=== PATIENT | male | born 1975 | race Caucasian/White ===

== ENCOUNTER 2017-11-23 11:09 | Emergency (ER) | payer MEDICAID, SELFPAY ==
[2017-11-23 11:10] VITALS: BP 122/79; PULSE 123; RESP 16; TEMP 37.2; O2SAT 99; BMI 38.6
--- NOTE | 2017-11-23 11:25 | ED.DCSUM_ITS ---
- ER Visit Summary Date of Service: 11/23/17 Chief Complaint: Not feeling well History of Present Illness: The patient is a 42 M presenting stating that he has not felt well for the past 3 weeks. He states he has had nausea, vomiting, diarrhea. He has had abdominal pain. This is worse when he eats. He has had fever at home along with flulike symptoms. He denies cough. He complains of sore throat only with vomiting. He went to his primary care physician today was sent into the ED for further evaluation. He denies chest pain or shortness of breath. Physical Examination: Vitals are stable. Patient is afebrile. Alert no acute distress. HEENT exam is unremarkable. Neck is supple. Lungs are clear and equal bilaterally. Heart is regular and tachycardic Abdomen is soft epigastric tenderness, no rebound or guarding Extremities are unremarkable. Skin is warm and dry. No focal neurologic deficit. Remainder of exam is unremarkable. Emergency Department Course and Treatment: Patient is given a GI cocktail. He was given zofran and IV fluids with improvement. CBC normal except for white count 11.3. Chemistries unremarkable. Liver enzymes are normal except for alk phos 126. Lipase is normal. Troponin is negative. Patient is feeling improved in the emergency department. Repeat heart rate 100. He is given prescription for Zofran. He is advised to follow-up with his primary care physician. Advised return to ED if worsening complaints. Disposition: Discharge home Impression: Vomiting and diarrhea This note was generated with [employer] dictation software. It may contain incorrect words, spelling, and punctuation that were not noted in review of the chart prior to signing ED Disposition - Plan for ED Patient: Chief Complaint: General Illness Instructions: ED Diet Vomiting Diarrhea Prescriptions: Ondansetron [Zofran Odt] 4 mg PO Q8H PRN PRN #10 tablet PRN Reason: Nausea Referrals: Kenn Pate MD [Primary Care Provider] -
--- NOTE | 2017-11-23 11:38 | NURSING ---
NO OLD EKGS
[2017-11-23] MEDS: Ondansetron 4 MG/2 ML Vial IV (11:45)
[2017-11-23] MEDS: 0.9% Normal Saline 1,000 ML 1000 ML IV (11:45)
[2017-11-23 12:07] LABS: Absolute Lymphocyte Count 0.38 X10^3/ul (0.83-4.51); Absolute Neutrophil Count 10.1 X10^3/uL (2.0-7.7); Basophil# 0.01 X10^3/uL; Basophil% 0.1 % (0-1); Differential Indicated SCAN CRITERIA MET; Eosinophil# 0.12 X10^3/uL; Eosinophils% 1.1 % (0-5); Hematocrit 48.7 % (40-54); Hemoglobin 16.8 g/dl (13.0-16.5); Lymphocyte # 0.38 X10^3/ul (4.0); Lymphocyte % 3.4 % (19-41); Mean Corp Hgb Conc 34.5 g/gl (32-36); Mean Corpuscular Hgb 29.7 pg (27.0-32.0); Mean Corpuscular Volume 86.2 fL (80-94); Mean Platelet Vol. 10.9 fl (6.2-12.0); Monocyte# 0.63 X10^3/uL; Monocyte% 5.6 % (0-10); Neutrophil % 89.5 % (47-70); POSITIVE COUNT NO; POSITIVE DIFFERENTIAL YES; POSITIVE MORPHOLOGY NO; Platelet Count 188 K/mm3 (150-450); RBC Distribution Width CV 12.7 % (11.6-14.6); RBC Distribution Width SD 39.9 fl (35.1-43.9); Red Blood Count 5.65 M/mm3 (4.6-6.2); White Blood Count 11.3 K/mm3 (4.4-11.0)
[2017-11-23 12:21] LABS: ALB/GLOB Ratio 0.8 RATIO (0.9-2.4); AST(SGOT) 32 U/L (15-37); Alanine Aminotransfer ALT/SGPT 43 U/L (16-61); Alkaline Phosphatase 126 U/L (45-117); Anion Gap 12 (5-15); BUN 14 mg/dL (7-18); BUN/Creat Ratio 12.8 RATIO (10-20); Calcium,Total 8.2 mg/dL (8.5-10.1); Chloride 110 mmol/L (98-107); Creatinine, Serum 1.09 mg/dL (0.70-1.30); EST Glomerular Filtration Rate 78 mL/min (>60); Est Glom Filt Rate - Afr Amer 95 mL/min (>60); Estimated Creatinine Clearance 93.07 ml/min; Glucose 114 mg/dL (74-106); Lipase 75 U/L (73-393); Potassium 4.5 mmol/L (3.5-5.1); Sodium Level 144 mmol/L (136-145)
[2017-11-23 14:35] VITALS: RESP 14
[2017-11-23 14:50] VITALS: BP 117/78; PULSE 105; RESP 17; O2SAT 95
[2017-11-23] MEDS: Acetaminophen 500 MG Tablet 1000 MG PO (14:50)
--- NOTE | 2017-11-23 14:52 | ED.DEP ---
ED Disposition - Plan for ED Patient: Chief Complaint: General Illness Instructions: ED Diet Vomiting Diarrhea Prescriptions: Ondansetron [Zofran Odt] 4 mg PO Q8H PRN PRN #10 tablet PRN Reason: Nausea Referrals: Kenn Pate MD [Primary Care Provider] -
[2017-11-23 15:08] VITALS: BP 117/78; PULSE 105; RESP 18; O2SAT 99
== END 2017-11-23 15:09 | disposition home or self-care (01) ==
PROVIDERS: Emergency Provider Emergency Medicine; Family Provider Family Medicine; PCP Family Medicine
DX: R11.2 Nausea with vomiting, unspecified (principal); R19.7 Diarrhea, unspecified; Z79.891 Long term (current) use of opiate analgesic; Z79.899 Other long term (current) drug therapy
CPT/HCPCS: 80053; 83690; 84484; 85025; 96361; 96374; 99283; J7030; J2405

== ENCOUNTER 2018-02-16 21:49 | Emergency (ER) | payer MEDICAID, SELFPAY ==
[2018-02-16 21:51] VITALS: BP 120/86; PULSE 79; RESP 16; TEMP 37.1; O2SAT 98; BMI 30.2
[2018-02-16] MEDS: 0.9% Normal Saline 1,000 ML 1000 ML IV (22:58)
[2018-02-16] MEDS: Loperamide 2 MG Capsule 4 MG PO (22:58)
[2018-02-16] MEDS: Dicyclomine 20 MG/2 ML Vial IM (22:58)
[2018-02-16] MEDS: Ondansetron 4 MG/2 ML Vial IV (22:58)
[2018-02-16 23:15] LABS: Absolute Lymphocyte Count 1.68 X10^3/ul (0.83-4.51); Absolute Neutrophil Count 11.2 X10^3/uL (2.0-7.7); Basophil# 0.03 X10^3/uL; Basophil% 0.2 % (0-1); Eosinophil# 0.08 X10^3/uL; Eosinophils% 0.6 % (0-5); Hematocrit 40.4 % (40-54); Hemoglobin 14.3 g/dl (13.0-16.5); Lymphocyte # 1.68 X10^3/ul (4.0); Mean Corp Hgb Conc 35.4 g/gl (32-36); Mean Corpuscular Hgb 29.4 pg (27.0-32.0); Mean Platelet Vol. 10.3 fl (6.2-12.0); Monocyte% 7.1 % (0-10); Neutrophil # 11.17 X10^3/uL (2.7-7.7); Neutrophil % 79.8 % (47-70); Platelet Count 215 K/mm3 (150-450); RBC Distribution Width CV 12.4 % (11.6-14.6); RBC Distribution Width SD 37.2 fl (35.1-43.9); Red Blood Count 4.87 M/mm3 (4.6-6.2)
[2018-02-16 23:16] LABS: POSITIVE COUNT NO; POSITIVE DIFFERENTIAL NO; POSITIVE MORPHOLOGY NO
[2018-02-16 23:33] LABS: ALB/GLOB Ratio 0.8 RATIO (0.9-2.4); AST(SGOT) 23 U/L (15-37); Alanine Aminotransfer ALT/SGPT 43 U/L (16-61); Alkaline Phosphatase 103 U/L (45-117); Anion Gap 9 (5-15); BUN 12 mg/dL (7-18); BUN/Creat Ratio 11.3 RATIO (10-20); Calcium,Total 8.4 mg/dL (8.5-10.1); Chloride 108 mmol/L (98-107); Creatinine, Serum 1.06 mg/dL (0.70-1.30); EST Glomerular Filtration Rate 81 mL/min (>60); Est Glom Filt Rate - Afr Amer 98 mL/min (>60); Globulin 3.6 g/dL (2.2-4.2); Glucose 121 mg/dL (74-106); Lipase 72 U/L (73-393); Potassium 3.5 mmol/L (3.5-5.1); Protein, Total 6.6 g/dL (6.4-8.2); Sodium Level 142 mmol/L (136-145)
--- NOTE | 2018-02-16 23:54 | ED.VISSUMM ---
- ER Visit Summary Date of Service: 02/16/18 Chief Complaint: Nausea vomiting and diarrhea History of Present Illness: The patient is a 42 M who presents with nausea vomiting diarrhea of 1 day. He states he vomited 10+ times. He has had 2 episodes of loose stools. He complains of diffuse abdominal cramping type pain. He denies fevers chest pain shortness of breath. He has chronic back pain. Physical Examination: Afebrile vitals are stable Moist mucous membranes Heart regular rate and rhythm Lungs are clear Abdomen soft nontender palpation nondistended Test Results: Laboratory studies notable for white blood cell count 14.0. Renal function and hepatic function lipase unremarkable. Emergency Department Course and Treatment: She was treated with IV fluids Zofran and Bentyl and Imodium. He is resting comfortably on reevaluation. Advised that this is likely a viral gastroenteritis and is likely self-limiting. He was instructed on specific signs and symptoms to monitor for, conditions under which to return to the emergency department. He was given a prescription for Zofran for as needed and was discharged Treatment Plan: [] Disposition: Discharge Impression: Gastroenteritis This note was generated with [employer] dictation software. It may contain incorrect words, spelling, and punctuation that were not noted in review of the chart prior to signing ED Disposition - Plan for ED Patient: Chief Complaint: Nausea/Vomiting Referrals: Kenn Pate MD [Primary Care Provider] -
--- NOTE | 2018-02-16 23:58 | ED.DCSUM_ITS ---
- ER Visit Summary Date of Service: 02/16/18 Chief Complaint: Nausea vomiting and diarrhea History of Present Illness: The patient is a 42 M who presents with nausea vomiting diarrhea of 1 day. He states he vomited 10+ times. He has had 2 episodes of loose stools. He complains of diffuse abdominal cramping type pain. He denies fevers chest pain shortness of breath. He has chronic back pain. Physical Examination: Afebrile vitals are stable Moist mucous membranes Heart regular rate and rhythm Lungs are clear Abdomen soft nontender palpation nondistended Test Results: Laboratory studies notable for white blood cell count 14.0. Renal function and hepatic function lipase unremarkable. Emergency Department Course and Treatment: She was treated with IV fluids Zofran and Bentyl and Imodium. He is resting comfortably on reevaluation. Advised that this is likely a viral gastroenteritis and is likely self- limiting. He was instructed on specific signs and symptoms to monitor for, conditions under which to return to the emergency department. He was given a prescription for Zofran for as needed and was discharged Treatment Plan: [] Disposition: Discharge Impression: Gastroenteritis This note was generated with [employer] dictation software. It may contain incorrect words, spelling, and punctuation that were not noted in review of the chart prior to signing ED Disposition - Plan for ED Patient: Chief Complaint: Nausea/Vomiting Referrals: Kenn Pate MD [Primary Care Provider] -
--- NOTE | 2018-02-16 23:58 | ED.DEP ---
ED Disposition - Plan for ED Patient: Chief Complaint: Nausea/Vomiting Instructions: ED Gastroenteritis Viral Prescriptions: Ondansetron [Zofran Odt] 4 mg PO Q8H PRN PRN #10 tab PRN Reason: Nausea Referrals: Kenn Pate MD [Primary Care Provider] -
[2018-02-17 00:17] VITALS: BP 135/80; PULSE 85; RESP 17; O2SAT 95
--- NOTE | 2018-02-17 00:17 | ED.RN ---
IV DC'ED, CATHETER INTACT, SMALL GAUZE DRESSING PLACED. DISCHARGE INSTRUCTIONS GIVEN TO AND REVIEWED WITH PATIENT, PATIENT DENIES QUESTIONS OR CONCERNS AND VOICES UNDERSTANDING OF DISCHARGE INSTRUCTIONS.
== END 2018-02-17 00:20 | disposition home or self-care (01) ==
LOC: ED 22:36
PROVIDERS: Emergency Provider Emergency Medicine; Family Provider Family Medicine; PCP Family Medicine
DX: K52.9 Noninfective gastroenteritis and colitis, unspecified (principal); M54.9 Dorsalgia, unspecified; G89.29 Other chronic pain; Z79.891 Long term (current) use of opiate analgesic; Z79.899 Other long term (current) drug therapy
CPT/HCPCS: 80053; 83690; 85025; 96372; 96374; 99283; J7030; J2405

== ENCOUNTER 2019-06-03 08:12 | Emergency (ER) | payer MEDICAID, SELFPAY ==
[2019-06-03 08:13] VITALS: BP 161/65; PULSE 65; RESP 16; TEMP 36.6; O2SAT 97; BMI 34.8
--- NOTE | 2019-06-03 08:25 | CT_ITS ---
STUDY: CT ABDOMEN AND PELVIS WITH CONTRAST REASON FOR EXAM: Male, 43 years old. Nausea and vomiting. Mid abdominal pain. History of prior umbilical hernia repair. RADIATION DOSAGE (If Supplied By Facility): CTDIvol = ( 18.57 ) mGy, DLP = ( 1397.94 ) mGycm TECHNIQUE: Transaxial images were obtained from the dome of the diaphragm to the symphysis pubis without oral contrast. 100mL IV Isovue 300 was administered. Sagittal and coronal images were reconstructed. Individualized dose optimization techniques were used for this CT. COMPARISON: Comparison is made with prior study dated January 16, 2014. FINDINGS: Increased markings at the lung bases slightly worse on the left side suggestive of atelectasis and/or possible infiltrate. Clinical correlation is recommended. The visualized portions of the heart are within normal limits. There is decreased attenuation of the liver consistent with steatosis. Normal gallbladder and extrahepatic biliary system. Normal spleen. There is diffuse atrophy of the pancreas. Normal bilateral adrenal glands. Normal right kidney. Normal left kidney. There is a small hiatal hernia. Findings suggestive of a 4.1 cm diverticulum of the second portion of the duodenum. Normal small intestine. Normal colon. The appendix is visualized and appears normal. There is scattered atherosclerotic calcification of the abdominal aorta, without a demonstrated aneurysm. Normal inferior vena cava. There is borderline retroperitoneal lymphadenopathy with enlarged nodes no greater than 10mm in the short axis diameter. Normal urinary bladder. Normal abdominal wall. Normal osseous structures. CT/Abdomen/Pelvis W IV Cont ONLY IMPRESSION: Increased markings at the lung bases worse on the left side suggestive of bibasilar atelectasis and possible superimposed left lower lobe infiltrate. There is atrophy of the pancreas. Electronically Signed: Paul Lopez, at 10:30 EDT , Service support ,
[2019-06-03] MEDS: Ondansetron 4 MG/2 ML Vial IV (08:57)
[2019-06-03] MEDS: morphine 8 MG/ML Syringe IV (08:57)
[2019-06-03] MEDS: 0.9% Normal Saline 1,000 ML 1000 ML IV (08:57)
[2019-06-03 08:59] LABS: Absolute Lymphocyte Count 1.14 X10^3/uL (0.83-4.51); Absolute Neutrophil Count 6.6 X10^3/uL (2.0-7.7); Basophil# 0.05 X10^3/uL; Basophil% 0.6 % (0-1); Eosinophils% 1.2 % (0-5); Hematocrit 43.8 % (40-54); Hemoglobin 15.1 g/dL (13.0-16.5); Lymphocyte # 1.14 X10^3/ul (4.0); Lymphocyte % 13.5 % (19-41); Mean Corp Hgb Conc 34.5 g/dL (32-36); Mean Corpuscular Hgb 29.9 pg (27.0-32.0); Mean Corpuscular Volume 86.7 fL (80-94); Mean Platelet Vol. 10.3 fl (6.2-12.0); Monocyte# 0.53 X10^3/uL; Monocyte% 6.3 % (0-10); NRBC Flagged by Analyzer 0 % (0-5); Neutrophil # 6.59 X10^3/uL (2.7-7.7); Neutrophil % 77.8 % (47-70); Platelet Count 216 K/mm3 (150-450); RBC Distribution Width CV 11.9 % (11.6-14.6); RBC Distribution Width SD 37.7 fl (35.1-43.9); Red Blood Count 5.05 M/mm3 (4.6-6.2); White Blood Count 8.5 K/mm3 (4.4-11.0)
[2019-06-03 09:16] LABS: ALB/GLOB Ratio 0.8 RATIO (0.9-2.4); AST(SGOT) 28 U/L (15-37); Alanine Aminotransfer ALT/SGPT 45 U/L (16-61); Alkaline Phosphatase 115 U/L (45-117); Anion Gap 1 (5-15); BUN 13 mg/dL (7-18); BUN/Creat Ratio 12.1 RATIO (10-20); Calcium,Total 8.7 mg/dL (8.5-10.1); Chloride 110 mmol/L (98-107); Creatinine, Serum 1.07 mg/dL (0.70-1.30); EST Glomerular Filtration Rate 80 mL/min (>60); Est Glom Filt Rate - Afr Amer 96 mL/min (>60); Estimated Creatinine Clearance 93.83 ml/min; Glucose 119 mg/dL (74-106); Lipase 116 U/L (73-393); Sodium Level 141 mmol/L (136-145)
--- NOTE | 2019-06-03 09:44 | ED.DCSUM_ITS ---
- ER Visit Summary Date of Service: 06/03/19 Chief Complaint: Abdominal pain History of Present Illness: The patient is a 43 M with upper abdominal pain since this morning around 5 AM. Associate with nausea vomiting. He never had this before. He did have a hernia surgery [address] Lockhart. He was doing well since the surgery. He has some chills but no other systemic symptoms. Note cardiac symptoms or respiratory symptoms. No urinary symptoms. Physical Examination: Afebrile and vital signs unremarkable. Patient appears uncomfortable. Alert and oriented. Heart regular rate and rhythm. Lungs clear. Abdomen tender in the upper hemiabdomen. No guarding or rebound. Hypoactive bowel sounds. Skin appears normal. Test Results: CBC, CMP, lipase unremarkable. CT abdomen and pelvis is pending. Emergency Department Course and Treatment: Labs and imaging were ordered. Patient treated with fluids, morphine, Zofran while awaiting results. CBC and CMP unremarkable. Lipase normal. CT showed bibasilar atelectasis and a possible left lower lobe infiltrate. He has atrophy of his pancreas. I reevaluated him. He was having continued pain. He said that sometimes he is having a little more pain to the left side. He does have chills and says he has an occasional cough with sputum. I am concerned he may have a pneumonia. I did get a chest x-ray which showed no additional concerning findings. He will be treated with azithromycin and I believe he is appropriate for outpatient care. I do not believe he has a PE. His exam is unremarkable. He has PERC negative. Outpatient follow-up was advised to document resolution. Return right away for any new or worsening symptoms. Treatment Plan: As above Disposition: Discharge Impression: 1. Pneumonia This note was generated with [employer] software. It may contain incorrect words, spelling, and punctuation that were not noted in review of the chart prior to signing ED Disposition - Plan for ED Patient: Referrals: Kenn Pate MD [Primary Care Provider] -
[2019-06-03] MEDS: Morphine 4 MG/ML Syringe IV (10:35)
--- NOTE | 2019-06-03 10:44 | RAD_ITS ---
STUDY: X-RAY CHEST REASON FOR EXAM: Male, 43 years old. Generalized illness. TECHNIQUE: Single AP portable view of the chest. COMPARISON: None. FINDINGS: Increased markings at the left lung base with blunting of left culturing angle suggestive of a left basilar atelectasis and/or infiltrate. There is no demonstrated pleural abnormality. Normal size heart. Normal mediastinum and jack. Normal visualized pulmonary arteries. Normal visualized aortic arch and descending thoracic aorta. Prior screw and plate fixation in the mid dorsal spine. Normal visualized ribs, clavicles, and shoulders. There is no demonstrated abnormality of the visualized soft tissue structures of the upper abdomen. RAD/Chest 1 View (Portable) IMPRESSION: Increased markings at the left lung base with blunting of left costophrenic angle suggests left atelectasis and/or infiltrate. Electronically Signed: Paul Lopez, at 11:10 EDT , Service support ,
--- NOTE | 2019-06-03 11:23 | ED.DEP ---
ED Disposition - Plan for ED Patient: Instructions: ABDOMINAL PAIN, Unkown Cause, (Male), Pneumonia Prescriptions: Azithromycin 250 mg PO DAILY 4 Days #4 tab Prescription Printed Referrals: Kenn Pate MD [Primary Care Provider] -
[2019-06-03] MEDS: Azithromycin 250 MG Tablet 500 MG PO (11:30)
[2019-06-03 11:32] VITALS: BP 121/76; PULSE 59; RESP 16; O2SAT 98
== END 2019-06-03 11:33 | disposition home or self-care (01) ==
LOC: ED 08:55
PROVIDERS: Emergency Provider Emergency Medicine; Family Provider Family Medicine; PCP Family Medicine
DX: J18.9 Pneumonia, unspecified organism (principal); Z72.0 Tobacco use
CPT/HCPCS: 71045; 74177; 80053; 83690; 85025; 96361; 96374; 96375; 96376; 99284; J7030; Q9967; A4216; J2405

== ENCOUNTER → 2019-11-09 09:25 | Outpatient (CLI) | payer MEDICAID, SELFPAY ==
--- NOTE | 2019-11-09 09:48 | RAD_ITS ---
HISTORY: BACK PAIN . Prior surgical fusion. EXAMINATION/TECHNIQUE: XR Spine Thoracic 2 Views: . COMPARISON: Portable chest 06/03/[address] abdomen and pelvis 06/03/2019 FINDINGS: Surgical fusion of the T6-7-8 levels utilizing pedicle screws and a metallic sideplate. Fusion hardware appears stable compared to previous. Below the fusion, stable mild anterior wedging of the T8 vertebral body. This level is seen by prior CT. T8-T9 marginal endplate spurring on the right, unchanged. Normal thoracic vertebral alignment. No acute fracture identified. The pedicles appear preserved. No suspicious bony lesion. Remote posttraumatic deformity of the posterior left seventh rib. RAD/Thoracic Spine 2 Views IMPRESSION: 1. Stable findings. No acute fracture identified. 2. T6-7-8 surgical fusion. N complication seen. 3. Normal thoracic vertebral alignment. at 0803 Reported and signed by: Cachorro Joiner MD Electronically Signed: Cachorro Joiner, at 8:02 EST Tel , Service support ,
--- NOTE | 2019-11-09 09:59 | RAD_ITS ---
HISTORY: BACK PAIN EXAMINATION/TECHNIQUE: XR Spine Lumbar 2 Views: COMPARISON: CT abdomen and pelvis 06/03/2019 FINDINGS: No significant change. The lumbar vertebra show normal height and alignment. No fracture or acute osseous abnormality. No suspicious bony lesion. Lumbar disc space heights are preserved. The posterior elements appear intact. No spondylolisthesis. SI joints are preserved. RAD/Lumbar Spine 2 or 3 Views IMPRESSION: Normal lumbar spine. at 0806 Reported and signed by: Cachorro Joiner MD Electronically Signed: Cachorro Joiner, at 8:05 EST Tel , Service support ,
[2019-11-09 11:16] LABS: Amphetamine Urine VISTA NEGATIVE (<1000 ng/mL); Barbiturate Urine VISTA NEGATIVE (< 200 ng/mL); Benzodiazepine Urine VISTA NEGATIVE (< 200 ng/mL); Cocaine Urine VISTA NEGATIVE (< 300 ng/mL); Ecstacy Urine VISTA POSITIVE (< 500 ng/mL); Methadone Urine VISTA NEGATIVE (< 300 ng/mL); PCP Urine VISTA NEGATIVE (< 25 ng/mL); THC Urine VISTA NEGATIVE (< 50 ng/mL); Vista UDS pH Range 6
== END ==
PROVIDERS: PCP Family Medicine; Referring Provider Anesthesiology Pain Medicine; Visit Provider Anesthesiology Pain Medicine
DX: M54.9 Dorsalgia, unspecified (principal); F11.20 Opioid dependence, uncomplicated
CPT/HCPCS: 72070; 72100; 80307

== ENCOUNTER → 2019-11-23 10:36 | Outpatient (CLI) | payer MEDICAID, SELFPAY ==
[2019-11-23 11:57] LABS: Amphetamine Urine VISTA NEGATIVE (<1000 ng/mL); Barbiturate Urine VISTA NEGATIVE (< 200 ng/mL); Benzodiazepine Urine VISTA NEGATIVE (< 200 ng/mL); Cocaine Urine VISTA NEGATIVE (< 300 ng/mL); Ecstacy Urine VISTA POSITIVE (< 500 ng/mL); Methadone Urine VISTA NEGATIVE (< 300 ng/mL); PCP Urine VISTA NEGATIVE (< 25 ng/mL); THC Urine VISTA NEGATIVE (< 50 ng/mL); Vista UDS pH Range 6
== END ==
PROVIDERS: PCP Family Medicine; Referring Provider Anesthesiology Pain Medicine; Visit Provider Anesthesiology Pain Medicine
DX: F11.20 Opioid dependence, uncomplicated (principal)
CPT/HCPCS: 80307

== ENCOUNTER 2020-01-11 13:30 | Outpatient (RCR) | payer MEDICAID, SELFPAY ==
--- NOTE | 2019-12-06 13:53 | HP.PTEVAL_ITS ---
Patient's Visit Information ERIK TAVAREZ Jr. is a 44 year old M referred to Physical Therapy by Dr. Azul Rivers MD with a diagnosis of BACK PAIN. Date of Evaluation: 12/06/19 Physical Therapist: Katie Jackson PT, Cert MDT - Visit Plan Frequency: 2-3x /Week Duration: 4-6 Weeks Plan: AQUATIC THERAPY FOR PAIN RELIEF, POSTURE CORRECTION/STRENGTHENING, INSTRUCTION IN APPROPRIATE BODY MECHANICS AND ACTIVITY MODIFICATIONS. DLS STARTING WITH A NEUTRAL SPINE PROGRESSING ROM TOLERATED. CHETAN LE ROM, STRETCHING AND STRENGTHENING. HEP INSTRUCTION. 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 Disability: DISABILITY 70% FOR BACK AND DEPRESSION. Present symptoms: THORACIC BACK PAIN. PATIENT REPORTS HE HAS PAIN, NUMBNESS AND TINGLING DOWN BOTH LEGS THAT HE HAS ALWAYS HAD BUT HE IS HERE FOR HIS MID BACK PAIN. Present since: 1998. Pain Scale: WORST 8/10, LEAST 4/10. Currently: 5/10. Commenced as a result of: FALL FROM [place] AND [place]OKE BACK - THEY FUSED MY SPINE. Symptoms at onset: PARALYSIS FROM WAIST DOWN - THEY TOLD ME I WOULD NEVER WALK AGAIN. IN [place] FOR A MONTH. STATES HE HAD TO TEACH HIMSELF HOW TO WALK AGAIN. GOT TIRED OF BEING IN A W/C. Worse: PROLONGED SITTING, STANDING AND WALKING AND LYING DOWN. ACTIVITY. Better: RE-POSITIONING. MEDICINE. CHANGE OF POSITION. Disturbed sleep: YES. Previous history/Previous treatment: SEVERAL BACK SURGERIES IN 1998 . NO BACK SURGERY SINCE 1998. PHYSICAL THERPAY SEVERAL TIME. AQUATIC THERPAPY IS THE ONLY THING THAT HELPED AT ALL. [facility] - THEY DON'T WORK. CHIROP[facility]CTIC ABOUT 3 MONTHS AGO AND HAS BEEN GOING A COUPLE YEARS - TEMPORARY RELIEF ONLY. Coughing/sneezing/straining: POSITIVE. Gait: TIME AND DISTANCE LIMITED DUE TO PAIN MOSTLY IN BACK AND LEFT LEG DYSFUNCTION. Difficulty initiating urinatin: NO. Accidents: 1998. Unexplained weight loss: NO. Imaging: RECENT THORACIC X-RAY: Surgical fusion of the T6-7-8 levels utilizing pedicle screws and a. metallic sideplate. Fusion hardware appears stable compared to previous. Below the fusion, stable mild anterior wedging of the T8 vertebral body. This level is seen by prior CT. T8-T9 marginal endplate spurring on the. right, unchanged. Normal thoracic vertebral alignment. No acute fracture identified. The. pedicles appear preserved. No suspicious bony lesion. Remote posttraumatic. deformity of the posterior left seventh rib. RAD/Thoracic Spine 2 Views. IMPRESSION: . 1. Stable findings. No acute fracture identified. 2. T6-7-8 surgical fusion. N complication seen. 3. Normal thoracic vertebral alignment. . RECENT LUMBAR X-RAY: FINDINGS: No significant change. The lumbar vertebra show normal height and. alignment. No fracture or acute osseous abnormality. No suspicious bony. lesion. Lumbar disc space heights are preserved. The posterior elements. appear intact. No spondylolisthesis. SI joints are preserved. RAD/Lumbar Spine 2 or 3 Views. IMPRESSION: . Normal lumbar spine. . PMH: UNREMARKABLE. Recent major surgery: UNREMARKABLE - Objective Sitting/Standing Posture: POOR. DECREASES WEIGHTBEARING ON RIGHT LE. Lordosis: NORMAL. Lateral shift: NO. Relevant shift: N/A. Active Correction of posture: INCREASES MID BACK PAIN. Other Observations: INDEP GAIT INTO PT WITHOUT ANY ASSISTIVE DEVICES OR GROSS DEVICATIONS NOTED. INDEP TRANSFER SIT TO STAND WITHOUT UE ASSIST. Motor deficit: CHETAN UE AND LE STRENGTH GROSSLY 5/5 WITH MMT'ING. Sensory deficit: CHETAN UE AND LE LIGHT TOUCH SENSATION APPEARS INTACT AND SYMMETRICAL BUT PATIENT REPORTS CHETAN LE TEMPERATURE DEFICIT. ROM deficit: TIGHT CHETAN LE HS'S AND GASTROC SOLEUS COMPLEX'S. ALSO CHETAN SHLD TIGHTNESS WITH APPROX 25% SHLD ELEVATION LOSS CHETAN. Reflexes: NT. Dural Signs: MILD POSITIVE LLE. THORACIC MVMT LOSS: R ROT - MOD - INCREASES PAIN. L ROT - MOD - INCREASES PAIN. Lumbar mvmt loss: flex - MOD. ext - ARIAS. R SG - MOD. L SG - MOD. Core strength: POOR. Palpation: TENDERNESS WITH PALPATION OF THE LEFT MID THORACIC SPINE REGION. TREATMENT: NEUROMUSCULAR REEDUCATION - RETRAINING OF MVMT AND POSTURE FOR SITTING, LYING AND STANDING ACTIVITIES. - Goals Goal 1:: DECREASE C/O BACK PAIN Goal 2:: IMPROVE PERSONAL CARE, LIFTING, WALKING, SITTING, STANDING, SLEEP, SOCIAL LIFE, TRAVEL, WORK AND HOMEMAKING FUNCTION. Goal Time Frame: 4-6 Weeks Goal 3:: INSTRUCT IN PROPHYLAXIS Goal Time Frame: 4-6 Weeks - Anticipated Interventions Patient/Client Instruction: Educate patient on: Condition, Plan of Care, Risk Factors, Benefits of Fitness Program For the Purpose of:: To improve self management Therapeutic Exercise to Include: Strength training, Body mechanics, Postural training, Flexibilty training, Neuromotor development, In an aquatic setting, Dynamic Lumbar Stabilization For the Purpose of:: To decrease pain, To increase ROM, To improve muscle performance and motor function, To increase tolerance to ac tivity/condition/position, To improve ability of physical actions for home/community/work/leisure Thank you for the opportunity to evaluate your patient. For Medicare and Medicare HMO plans, please review the plan of care and approve it. It will need to be FAXED BACK to us at [phone] for Medicare purposes. For Medicare only, by signing this I certify the plan of care. Please let me know if there are questions or concerns regarding this plan of care. Physician Signature: Date:
--- NOTE | 2020-01-11 14:04 | HP.PTDCSUM ---
It has been my pleasure to treat ERIK TAVAREZ Jr. referred by Dr. Azul Rivers MD, with the diagnosis of BACK PAIN for a total of 8 visit(s). Discharge Date: Please see the following information for a summary of their discharge status. Subjective: No improvements at this time. Thoracic Spine Pain Intensity (Out of 10): 5 Lumbar Spine Pain Intensity (Out of 10): 5 BLAT LEs Pain Intensity (Out of 10): 5 % Improvement: 0 Objective/Function: No change in back pain at this time. Pt reports he is still very limited with all activities. Discontinues secondary to lack of progress Goal 1:: DECREASE C/O BACK PAIN Goal Progress: Not Progressing Goal 2:: IMPROVE PERSONAL CARE, LIFTING, WALKING, SITTING, STANDING, SLEEP, SOCIAL LIFE, TRAVEL, WORK AND HOMEMAKING FUNCTION. Goal Progress: Not Progressing Goal 3:: INSTRUCT IN PROPHYLAXIS Goal Progress: Goal Met Plan: Discontinue, RTD If there are questions or concerns regarding this patient's physical therapy, please feel free to call me at [phone]. Thank you for the referral of this patient. Sincerely, Adán Duron, PT, ATC
== END 2020-01-11 14:31 | disposition home or self-care (01) ==
LOC: PT 13:30
PROVIDERS: PCP Family Medicine; Referring Provider Anesthesiology Pain Medicine; Visit Provider Anesthesiology Pain Medicine
DX: M54.6 Pain in thoracic spine (principal)
CPT/HCPCS: 97112; 97113; 97162; 97164

== ENCOUNTER → 2020-01-19 | Outpatient (CLI) | payer MEDICAID, SELFPAY ==
--- NOTE | 2020-01-19 10:36 | MRI_ITS ---
STUDY: MRI LUMBAR SPINE WITHOUT CONTRAST REASON FOR EXAM: Male, 44 years old. back pain MID UPPER BACK, L RIB PAIN TECHNIQUE: Standardized fat and water weighted pulse sequences were obtained in the sagittal and axial planes. COMPARISON: None FINDINGS: T12-L1: There is minimal disc space narrowing and endplate spondylosis. There is no significant disc herniation, central canal or foraminal stenosis. Normal lumbar lordosis. There is no substantial scoliosis. Normal conus medullaris that terminates at the L1 L1-2: There is minimal disc space narrowing and endplate spondylosis. There is no significant disc herniation, central canal or foraminal stenosis. L2-3: There is minimal disc space narrowing and endplate spondylosis. There is no significant disc herniation, central canal or foraminal stenosis. L3-4: There is minimal disc space narrowing and endplate spondylosis. There is no significant disc herniation, central canal or foraminal stenosis. There is mild disc bulge without significant central canal stenosis. There is mild right and mild left foraminal stenosis. L4-5: There is minimal disc space narrowing and endplate spondylosis. There is no significant disc herniation, central canal or foraminal stenosis. There is mild disc bulge and facet arthropathy without significant central canal size. There is mild right and mild left foraminal stenosis. L5-S1: There is mild disc space narrowing and endplates spondylosis. There is a mild disc bulge and facet arthropathy asymmetric to the left with moderate left foraminal stenosis. There is no significant central canal or right foraminal stenosis. Normal visualized sacral ala. MRI/Spine Lumbar (Routine) IMPRESSION: L5/S1: Moderate left foraminal stenosis. Electronically Signed: Zak Frazier MD at 15:52 EDT Tel , Service support ,
== END | disposition home or self-care (01) ==
LOC: MRI 10:32
PROVIDERS: PCP Family Medicine; Referring Provider Anesthesiology Pain Medicine; Visit Provider Anesthesiology Pain Medicine
DX: M54.9 Dorsalgia, unspecified (principal); M79.606 Pain in leg, unspecified
CPT/HCPCS: 72148

== ENCOUNTER → 2020-03-08 11:11 | Outpatient (CLI) | payer MEDICAID, SELFPAY ==
--- NOTE | 2020-03-08 11:17 | MRI_ITS ---
STUDY: MRI THORACIC SPINE WITH AND WITHOUT CONTRAST REASON FOR EXAM: Male, 44 years old. upper back pain many years, h/o thoracic sx TECHNIQUE: IV 25cc dotarem was administered for the contrast portion of the examination. COMPARISON: Thoracic spine x-ray dated November 09, 2019 FINDINGS: Normal kyphosis of the thoracic spine. There is no substantial scoliosis. Spinal hardware is present at the T6-T8 levels resulting in susceptibility artifact and limited visualization of the surrounding structures. The spinal cord and central canal are obscured at these levels on the postcontrast scan. T1-2, T2-3, T3-4, T4-5, T5-6, T6-7, T7-8, T8-9, T9-10, T10-11, T11-12: No posterior disc herniation or cord compression is demonstrated. Mild disc space narrowing and surgical ankylosis is seen at the levels of the hardware. The remaining disc spaces are mostly preserved. Some minor endplate degenerative changes are present at several levels. Normal central canal and intervertebral neural foramina at the corresponding levels. Postsurgical scarring is seen in the supraspinatus soft tissues at the level of the hardware. Normal visualized thoracic cord. No cord edema or syrinx is seen. Normal conus medullaris that terminates at the T12-L1. The soft tissue structures are unremarkable. In the aspects of the bony and soft tissue structures no focal or suspicious enhancement is seen. MRI/Spine Thoracic W/WO Contrast IMPRESSION: 1. Minor degenerative changes at several levels. 2. In the aspects of the bony and soft tissue structures no focal or suspicious enhancement is seen. Electronically Signed: Gareth Diaz MD at 13:11 EDT , Service support ,
== END ==
PROVIDERS: PCP Family Medicine; Referring Provider Anesthesiology Pain Medicine; Visit Provider Anesthesiology Pain Medicine
DX: M54.9 Dorsalgia, unspecified (principal)
CPT/HCPCS: 72157; A9575

== ENCOUNTER 2022-03-10 18:01 | Emergency (ER) | payer OTHER, SELFPAY ==
[2022-03-10 18:01] VITALS: BP 111/89; PULSE 85; RESP 18; TEMP 36.2; O2SAT 98; BMI 38.3
--- NOTE | 2022-03-10 18:16 | RAD_ITS ---
STUDY: XR Foot Min 3 Views CLINICAL: Male, 46 years old. pain TECHNIQUE: XR Foot Min 3 ViewsLEFT COMPARISON: None. FINDINGS: Normal talus, calcaneus, and tarsal bones. Normal visualized subtalar, talonavicular, calcaneocuboid, tarsal and tarsometatarsal articulations. Normal metatarsi. There is degenerative arthrosis of the metatarsophalangeal joint of the hallux . Normal tibial and fibular sesamoid bones. Normal interphalangeal joint of the great toe. Normal phalanges of the great toe. Normal second through fifth metatarsophalangeal joints. Normal interphalangeal joints and phalanges of the lesser toes. The soft tissue structures are unremarkable. RAD/Foot min 3 Views IMPRESSION: There is degenerative arthrosis of the metatarsophalangeal joint of the hallux . Electronically Signed: Adán Go MD at 18:35 EDT ,
--- NOTE | 2022-03-10 18:58 | EDS_ITS ---
HPI History of Present Illness Chief Complaint: Lower Extremity Injury Narrative Narrative: Patient who denies significant past medical history presents with left foot pain and swelling for the last month. He denies any injury. He states his pain is across the top of his foot and on both sides of the arch of his foot. He complains of pain and swelling. No fevers or chills. No calf swelling or pain. No other symptoms. It is worse with walking and weightbearing. Is relieved by nothing. PFSH PFSH Medical History no medical history Home Medications pregabalin 300 mg capsule (Lyrica) 300 mg PO BID 11/23/17 [History Last Taken 06/03/19] acetaminophen 300 mg-codeine 30 mg tablet 1 - 2 tab PO DAILY PRN Pain 03/10/22 [History Last Taken Unknown] Allergy/AdvReac Type Severity Reaction Status Date / Time Penicillins Allergy Unknown Verified 03/10/22 18:02 Surgical History no surgical history Social History Smoking Status: Current every day smoker tobacco type: cigarettes ROS ROS ED ROS Narrative Constitutional: No fever, no chills. HEENT: No sore throat. No neck pain. No loss of vision. No rhinorrhea. Cardiovascular: No chest pain. No palpitations. No pedal edema. Respiratory: No cough, no shortness of breath. Abdominal: No abdominal pain. No nausea. No vomiting. Genitourinary: No dysuria. No hematuria. Musculoskeletal: Left foot pain and swelling on both sides of arch. Neurologic: No headaches. No dizziness. No lightheadedness. Skin: No rash. No change in color. Psychiatric: No depression. No anxiety. EXAM Physical Exam Narrative Exam Narrative: Afebrile. Vital signs noted. HEENT: Normocephalic. Atraumatic. PERRL, EOMI. Neck soft and supple. No point tenderness or step off. Cardiovascular: Regular rate and rhythm. No murmurs, rubs, or gallops appreciated. Respiratory: No tachypnea. Lungs clear to auscultation bilaterally. Gastrointestinal: Abdomen soft, nontender, with normoactive bowel sounds. No rebound or guarding. Neurological: Awake. Alert. Nonfocal, nonlateralizing. Skin: No rash. Normal color. No pallor. Musculoskeletal: No pedal edema. Full range of motion extremities. No noted sw elling of left foot. Palpable dorsalis pedis pulse. EHL intact. No left calf pain or palpable cord. Full range of motion of ankle and knee. Const Vital Signs: 03/10/22 18:01 Temperature 97.1 F L Temperature Source Temporal Pulse Rate 85 Respiratory Rate 18 Blood Pressure 111/89 H Blood Pressure Mean 96 Pulse Ox 98 Oxygen Delivery Method Room Air MDM MDM MDM Narrative Medical decision making narrative: Patient with longstanding pain and reported swelling of his foot, admittedly states he wants to make sure nothing is broken. X-rays were obtained of the left foot in 3 views and interpreted by myself. There is no evidence of fracture or noted soft tissue swelling. At this point in time, he will be placed in an Candido wrap and continue [id number] analgesics as needed. He was referred to podiatry. I feel he be discharged safely home with follow-up. Return instructions were reviewed. Disposition is discharged home in stable condition. Radiography Diagnostic Testing: Clinical Impression(s) from Imaging Studies Foot X-Ray 03/10/22 18:16 IMPRESSION: There is degenerative arthrosis of the metatarsophalangeal joint of the hallux . Electronically Signed: Adán Go MD at 18:35 EDT Reading Location ID and State: [facility] / [place] , Service support , Discharge Plan Triage Chief Complaint: Lower Extremity Injury ED Provider: Baldemar Restrepo Dx/Rx/DC Orders Clinical Impression: Foot pain, Foot sprain Instructions: ED Bandage Elastic Wrap, ED Foot Sprain, ED Pain, Acute, Uncertain Cause Prescriptions: No Action pregabalin [Lyrica] 300 MG capsule 300 mg PO BID acetaminophen-codeine 300-30 mg tablet 1 - 2 tab PO DAILY PRN (Reason: Pain) Label Comments: take 1 TO 2 tablets by mouth once daily if needed Primary Care Provider: Kenn Pate Referrals: Ralf Carrillo DPM [STAFF PHYSICIAN] - As soon as possible Kenn Pate MD [Primary Care Provider] - Disposition Disposition: Home, Self Care
== END 2022-03-10 19:05 | disposition home or self-care (01) ==
PROVIDERS: Emergency Provider Emergency Medicine; PCP Family Medicine; Visit Provider Emergency Medicine
DX: S93.602A Unspecified sprain of left foot, initial encounter (principal); F17.210 Nicotine dependence, cigarettes, uncomplicated; X58.XXXA Exposure to other specified factors, initial encounter; Y93.9 Activity, unspecified; Y99.9 Unspecified external cause status; Y92.9 Unspecified place or not applicable
CPT/HCPCS: 73630; 99282